=== PATIENT | female | born 1955 | race Caucasian/White ===

== ENCOUNTER 2022-02-10 06:48 | Day surgery (SDC) | payer MEDICARE, SELFPAY ==
[2022-02-10 07:20] VITALS: BP 139/70; PULSE 86; RESP 16; TEMP 37.1; O2SAT 100
[2022-02-10] MEDS: Tropicam./Phenyleph. (1/2.5%) 5 ML BTL OD ×3 (07:34→07:44)
--- NOTE | 2022-02-10 07:37 | ANES.PREOP_ITS ---
General Info Date of Service Date Performed: 02/10/22 Height: 5 ft 2 in Weight: 49.8 kg Body Mass Index (BMI): 20.0 Surgical Procedure: Operation Date: 02/10/22 08:40 Proposed Procedure Side Surgeon p Cataract Extraction with IOL Implant Right Jose Manuel Nguyen MD Meds Allergies and Home Medications Allergies Allergy/AdvReac Type Severity Reaction Status Date / Time No Known Allergies Allergy Verified 02/10/22 07:14 Home Medication Medication Instructions Recorded albuterol sulfate 90 mcg/actuation 2 puff inhalation DIRECTED 02/07/22 aerosol inhaler (Ventolin HFA) amlodipine 10 mg tablet 10 mg PO DAILY 02/07/22 fluticasone propionate 220 220 inh inhalation DAILY 02/07/22 mcg/actuation HFA aerosol inhaler (Flovent HFA) ipratropium 0.5 mg-albuterol 3 mg 3 ml inhalation DIRECTED 02/07/22 (2.5 mg base)/3 mL nebulization soln levocetirizine 5 mg tablet 5 mg PO DAILY 02/07/22 multivitamin 1 tab PO DAILY 02/07/22 tiotropium 2.5 mcg-olodaterol 2.5 2 puff inhalation DAILY 02/07/22 mcg/actuation mist for inhalation Current Visit Medications: Current Medications Generic Name Dose Route Start Last Admin Trade Name Freq PRN Reason Stop Dose Admin Acetaminophen 1,000 mg 02/10/22 06:00 Acetaminophen 500 Mg Tab PO Q4H PRN PRN Miscellaneous Medication 0 ml 02/10/22 06:00 Prednisolone 1%, Moxifloxacin 0.5%, Nepafenac 0.1% 5ml Btl OD DIRECTED [facility] Miscellaneous Medication 0 ml 02/10/22 06:00 02/10/22 07:34 Tropicam./Phenyleph. (1/2.5%) 5 Ml Btl OD 1 drp DIRECTED [facility] Administration Tetracaine HCl 0 ml 02/10/22 06:00 Tetracaine 0.5% 4 Ml Btl OD DIRECTED [facility] Medical History Medical History Bilateral cataracts Centriacinar emphysema Chronic respiratory failure HTN (hypertension) Nicotine dependence in remission Not for resuscitation Pulmonary HTN Requires oxygen therapy 3L O2 24/hr Severe chronic obstructive pulmonary disease Medical History Comments:: 3L chronic O2 Surgical History Surgical History History of left hip replacement Hx of tubal ligation Tobacco Smoking/Tobacco Use Status: Former Tobacco Use Alcohol Alcohol Intake: current Alcohol intake frequency: holidays/special occasions only Alcohol type: wine Substance Use Substance use: Rarely Details: CBD gummy Vital Signs and Lab Results Vital Signs Most Recent Vital Signs in EMR: Most Recent Vital Signs Temp Pulse Resp BP Pulse Ox 37.1 C 86 16 139/70 100 02/10/22 07:20 02/10/22 07:20 02/10/22 07:20 02/10/22 07:20 02/10/22 07:20 Lab Results Blood Type / Crossmatch: No Data to Display Complete Blood Count: No Data to Display Complete Metabolic Panel: No Data to Display Liver Function Panel: No Data to Display Coagulation Panel: No Data to Display Cardiac Panel: No Data to Display Arterial Blood Gas: No Data to Display Venous Blood Gas: No Data to Display Pancreas Panel: No Data to Display Thyroid Panel: No Data to Display Infectious Disease: No Data to Display Blood Cultures: No Data to Display Toxicology Panel: No Data to Display Anesthesia Assessment and Plan Anesthesia History Personal History: No History of Anesthesia Complications Family History: No Family History of Anesthesia Complications Exercise Tolerance Exercise Tolerance: Metabolic Equivalents<4 Pertinent Negatives Pertinent Negatives: No Major Cardiovascular Symptoms or Complaints Cardiac & Pulmonary Exam Cardiac Exam: Normal S1/S2 Heart Sounds Pulmonary Exam: Clear Bilateral Breath Sounds (Diminished) Cardiac and Pulmonary Comment:: O2 dependent Implantable Cardiac Device Does patient have a Pacemaker or an ICD?: No Airway Exam Known Difficult Airway: No Mallampati Class: 2 Mouth Opening: Normal (> 3cm) Thyromental Distance: Greater than 3 cm Neck Range of Motion: Full ROM Neck Circumference: Normal Teeth Condition: Removable Dentures/Plates Upper and Removable Dentures/Plates Lower (Partial) ASA Classification ASA Score: ASA 3 Emergency Case?: No NPO Status NPO Status: NPO Clears >2 hours, Solids >8 hours Anesthesia Plan Resuscitation Status: Full Code Anesthesia Technique: MAC Anesthesia Airway Planned: Natural Airway Monitors Used: Standard Monitors
[2022-02-10] MEDS: Lidocaine 2% Jelly 6 ML SYR (08:18)
[2022-02-10] MEDS: Tetracaine 0.5% 4 ML BTL OD (08:18)
[2022-02-10] MEDS: Povidone-Iodine Ophth 30 ML BTL (08:18)
[2022-02-10] MEDS: Balanced Salt Soln.-PLUS 500 ML BAG (08:25)
[2022-02-10 08:45] VITALS: BP 127/75; PULSE 83; RESP 16; TEMP 36.7; O2SAT 100
--- NOTE | 2022-02-10 08:49 | W.PM.DSUDISC ---
Discharge Plan Disposition Patient Disposition: HOME Condition: Good Discharge Details Attending Provider: Jose Manuel Nguyen Primary Care Provider: Dylon Fuentes Home Meds and New Rx's Prescriptions: No Action multivitamin Tablet 1 tab PO DAILY ipratropium-albuterol 0.5 mg-3 mg(2.5 mg base)/3 mL Solution For Nebulization 3 ml INHALATION DIRECTED albuterol sulfate [Ventolin HFA] 90 mcg/actuation Hfa Aerosol Inhaler 2 puff INHALATION DIRECTED levocetirizine 5 mg Tablet 5 mg PO DAILY tiotropium-olodaterol 2.5-2.5 mcg/actuation Mist 2 puff INHALATION DAILY amlodipine 10 mg Tablet 10 mg PO DAILY fluticasone propionate [Flovent HFA] 220 mcg/actuation Hfa Aerosol Inhaler 220 inh INHALATION DAILY Discharge Instructions Stand Alone Forms: Post-op Topical Cataract, Jessica Ramírez (DSU) Discharge Orders Discharge Orders: Discharge Order (Routine); Ordered 02/10/22 Ordered By: Jose Manuel Nguyen DS: Diagnosis Discharge Diagnosis (1) Nuclear sclerotic cataract of right eye: Status: Resolved (2) Posterior subcapsular age-related cataract, right eye: Status: Resolved
--- NOTE | 2022-02-10 08:50 | ROE_ITS ---
Date of service: 02/10/22 Time of Service: 08:50 Operative Note Operative Note DATE OF PROCEDURE: 02/10/22 PRE-OP DIAGNOSIS: Nuclear/posterior subcapsular cataract, right eye POST-OP DIAGNOSIS: same PROCEDURE: Cataract extraction using phacoemulsification with intraocular lens implant, right eye SURGEON: Jose Manuel Nguyen ANESTHESIA TYPE: Local By Surgeon and MAC Refer to Anesthesia Record ESTIMATED BLOOD LOSS: 0 PATHOLOGY: none sent COMPLICATIONS: None Patient was transported to: same day Patient's condition: stable Implants: Barron & Barron/MORENA Tecnis [id number] Indications: Progressive visual loss due to cataract, right eye Procedure Description: CATARACT SURGERY OPERATIVE REPORT PREOPERATIVE DIAGNOSIS: 1. Nuclear/posterior subcapsular cataract, right eye POSTOPERATIVE DIAGNOSIS: Same OPERATION: 1. Cataract extraction using phacoemulsification with posterior chamber intraocular lens implant, right eye. IOL: IOL [employer] Operator/Model: Barron & Barron / MORENA Tecnis [id number] IOL Power: + 21.5 diopters IOL Serial Number: [id number] Optic Diameter: 6.0mm Haptic/Overall Diameter: 13.0mm PHACO INFO: Rakesh Wriggleurion Vision System with OZil and Active Fluidics Cumulative Dispersed Energy (CDE): 18.43 seconds SURGEON: Jose Manuel Nguyen MD, TERRY ANESTHESIA: Monitored Anesthesia Care (MAC), with local sub-tenon's anesthetic infiltration COMPLICATIONS: None SPECIMENS: None INDICATIONS FOR PROCEDURE: The patient is a 66-year-old lady with history of diminished visual acuity in her right eye secondary to the development of nuclear and posterior subcapsular cataract. She has a mature white cataract in her left eye with light perception vision. We elected to do the lesser cataract first for more rapid visual rehabilitation. The option of cataract surgery was offered to the patient and she wished to proceed. PROCEDURE: The correct surgical eye was identified and marked as the right eye and the pupil was dilated in the preoperative area using mydriatics and cycloplegics. The dilated pupil size was 6.5 mm. The patient elected to proceed without oral sedation. The patient was brought to the operating room where cardiopulmonary monitoring was instituted and surgical time-out was performed, confirming the correct operative eye and IOL power. Topical anesthesia was administered and ophthalmic povidone-iodine 5% was instilled into the conjunctival fornices. Lidocaine gel was applied to the cor kenyon and the jeannine-ocular area was prepped with Betadine 10% solution and draped in the usual sterile fashion for intraocular surgery, including an aperture drape. A Tegaderm transparent film dressing was cut in half and used to cover the lashes and lid margins. Care was taken to sequester the lashes and lid margins under the Tegaderm dressing. A lid speculum was placed between the lids of the operative eye and the Rakesh LuxOR Revalia operating microscope was maneuvered into position. Rajinder scissors were then used to make a conjunctival buttonhole approximately 6mm posterior to the limbus in the inferonasal quadrant. Blunt dissection was carried out to expose bare sclera, and a blunt-tipped sub-tenon?s anesthesia cannula was introduced and passed posteriorly along the globe where non- preserved plain lidocaine was injected into posterior sub-Tenon?s space. A sideport knife was used to make a paracentesis port inferotemporally. Intraocular phenylephrine/lidocaine was injected into the anterior chamber. The anterior chamber was filled with viscoelastic. A keratome knife was used to construct a 2-plane near-clear corneal tunnel extending 2.0mm into clear cornea superiortemporally. A flap was raised on the anterior capsule and capsulorhexis forceps were used to complete a continuous curvilinear capsulorhexis of 5.5 mm. Capsule was noted to be quite rubbery with loose zonules. Balanced salt solution was then used to perform cortical cleaving hydrodissection and nuclear hydrodelineation until the lens could be freely rotated within the capsular bag. The lens nucleus was then disassembled and removed within the capsular bag and iris plane using phacoemulsification. Residual cortical material was removed using the I/A handpiece. The posterior capsule was carefully polished to remove as much residual lens epithelial cells as safely possible. The capsular bag was then inflated and the anterior chamber deepened with viscoelastic. The lens implant described above was inserted into the capsular bag using the MORENA Lummi Injector. A Kuglen hook was used to dial the IOL into position. Residual viscoelastic was then removed first from posterior to the IOL, then from the anterior chamber using the I/A handpiece. The lens implant was noted to center nicely within the capsular bag. The incisions were stromally hydrated, and the anterior chamber was reformed using BSS. Then 0.5cc of moxifloxacin 1.0mg/ml were injected into the capsular bag and anterior chamber. The incisions were checked with a Weck spear and found to be secure. Several drops of ophthalmic povidone-iodine 5% were then applied to the eye followed by two drops of Imprimis combination prednisolone/moxifloxacin/nepafenac solution. The drapes were removed and a clear plastic protective eye shield was placed over the eye. The patient was then returned to Same Day Surgery in stable condition.
--- NOTE | 2022-02-10 09:01 | W.ANESPOSTOP ---
Postoperative Evaluation Date, Time and Location Date Performed: 02/10/22 Time Performed: 08:53 Patient Location: Day Surgery Unit Vital Signs Most Recent Imported Vital Signs: Most Recent Vital Signs Temp Pulse Resp BP Pulse Ox 36.7 C 83 16 127/75 100 02/10/22 08:45 02/10/22 08:45 02/10/22 08:45 02/10/22 08:45 02/10/22 08:45 Pain Score Most Recent Pain Score: Most Recent Pain Score Pain Level 0 02/10/22 08:45 Assessment Mental Status: Awake (Alert & Oriented to Patient Baseline) Airway and Respiratory Function: Patent airway with normal (patient baseline) respiratory exam Cardiovascular Function: Hemodynamically Stable Hydration Status: Adequately Hydrated Nausea & Vomiting: No Nausea or Vomiting Pain: Pt. Denies Any Pain Peripheral Nerve Block: Patient did not receive a nerve block
== END 2022-02-10 09:15 | disposition home or self-care (01) ==
LOC: SUR 06:49
PROVIDERS: PCP Internal Medicine; Visit Provider Ophthalmology
PROC: (CPT 66984; principal; 2022-02-10 08:30)
DX: H25.041 Posterior subcapsular polar age-related cataract, right eye (principal); J44.9 Chronic obstructive pulmonary disease, unspecified; Z99.81 Dependence on supplemental oxygen
CPT/HCPCS: 66984; V2632

== ENCOUNTER 2022-02-24 10:10 | Day surgery (SDC) | payer MEDICARE, SELFPAY ==
[2022-02-24] MEDS: Tropicam./Phenyleph. (1/2.5%) 5 ML BTL OS ×3 (11:07→11:20)
[2022-02-24 11:08] VITALS: BP 122/65; PULSE 71; RESP 18; TEMP 36.7; O2SAT 100
--- NOTE | 2022-02-24 11:30 | W.ANESPRE ---
General Info Date of Service Date Performed: 02/24/22 Height: 5 ft 2 in Weight: 49.6 kg Body Mass Index (BMI): 20.0 Surgical Procedure: Operation Date: 02/24/22 13:40 Proposed Procedure Side Surgeon p Cataract Extraction with IOL Implant Left Jose Manuel Nguyen MD Meds Allergies and Home Medications Allergies Allergy/AdvReac Type Severity Reaction Status Date / Time No Known Allergies Allergy Verified 02/24/22 10:57 Home Medication Medication Instructions Recorded albuterol sulfate 90 mcg/actuation 2 puff inhalation DIRECTED 02/07/22 aerosol inhaler (Ventolin HFA) amlodipine 10 mg tablet 10 mg PO DAILY 02/07/22 fluticasone propionate 220 220 inh inhalation DAILY 02/07/22 mcg/actuation HFA aerosol inhaler (Flovent HFA) ipratropium 0.5 mg-albuterol 3 mg 3 ml inhalation DIRECTED 02/07/22 (2.5 mg base)/3 mL nebulization soln levocetirizine 5 mg tablet 5 mg PO DAILY 02/07/22 multivitamin 1 tab PO DAILY 02/07/22 tiotropium 2.5 mcg-olodaterol 2.5 2 puff inhalation DAILY 02/07/22 mcg/actuation mist for inhalation Current Visit Medications: Current Medications Generic Name Dose Route Start Last Admin Trade Name Freq PRN Reason Stop Dose Admin Acetaminophen 1,000 mg 02/24/22 06:00 Acetaminophen 500 Mg Tab PO Q4H PRN PRN Miscellaneous Medication 0 ml 02/24/22 06:00 Prednisolone 1%, Moxifloxacin 0.5%, Nepafenac 0.1% 5ml Btl OS DIRECTED [facility] Miscellaneous Medication 0 ml 02/24/22 06:00 02/24/22 11:20 Tropicam./Phenyleph. (1/2.5%) 5 Ml Btl OS 1 drp DIRECTED [facility] Administration Tetracaine HCl 0 ml 02/24/22 06:00 Tetracaine 0.5% 4 Ml Btl OS DIRECTED [facility] PFSH Active Problems Active Problems: Problem Status Onset Code Posterior subcapsular age-related cataract of left eye H25.042 Nuclear sclerotic cataract of left eye H25.12 Cortical cataract of left eye H26.9 Mature cataract H26.8 Nuclear sclerotic cataract of right eye H25.11 Posterior subcapsular age-related cataract, right eye H25.041 Medical History Medical History Bilateral cataracts Centriacinar emphysema Chronic respiratory failure HTN (hypertension) Nicotine dependence in remission Not for resuscitation Pulmonary HTN Requires oxygen therapy 3L O2 24/hr Severe chronic obstructive pulmonary disease Medical History Comments:: 3L chronic O2 Surgical History Surgical History History of left hip replacement Hx of cataract surgery Hx of tubal ligation Tobacco Smoking/Tobacco Use Status: Former Tobacco Use Alcohol Alcohol Intake: current Alcohol intake frequency: holidays/special occasions only Alcohol type: wine Substance Use Substance use: Rarely Details: CBD gummy Vital Signs and Lab Results Vital Signs Most Recent Vital Signs in EMR: Most Recent Vital Signs Temp Pulse Resp BP Pulse Ox 36.7 C 71 18 122/65 100 02/24/22 11:08 02/24/22 11:08 02/24/22 11:08 02/24/22 11:08 02/24/22 11:08 Lab Results Blood Type / Crossmatch: No Data to Display Complete Blood Count: No Data to Display Complete Metabolic Panel: No Data to Display Liver Function Panel: No Data to Display Coagulation Panel: No Data to Display Cardiac Panel: No Data to Display Arterial Blood Gas: No Data to Display Venous Blood Gas: No Data to Display Pancreas Panel: No Data to Display Thyroid Panel: No Data to Display Infectious Disease: No Data to Display Blood Cultures: No Data to Display Toxicology Panel: No Data to Display Anesthesia Assessment and Plan Anesthesia History Personal History: No History of Anesthesia Complications Family History: No Family History of Anesthesia Complications Exercise Tolerance Exercise Tolerance: Metabolic Equivalents<4 Cardiac & Pulmonary Exam Cardiac Exam: Normal S1/S2 Heart Sounds Pulmonary Exam: Clear Bilateral Breath Sounds (Diminished) Implantable Cardiac Device Does patient have a Pacemaker or an ICD?: No Airway Exam Known Difficult Airway: No Mallampati Class: 2 Mouth Opening: Normal (> 3cm) Thyromental Distance: Greater than 3 cm Neck Range of Motion: Full ROM Neck Circumference: Normal Teeth Condition: Removable Dentures/Plates Upper and Removable Dentures/Plates Lower (Partial) ASA Classification ASA Score: ASA 3 Emergency Case?: No NPO Status NPO Status: NPO Clears >2 hours, Solids >8 hours Anesthesia Plan Resuscitation Status: Full Code Anesthesia Technique: MAC Anesthesia Airway Planned: Natural Airway Monitors Used: Standard Monitors
[2022-02-24] MEDS: Tetracaine 0.5% 4 ML BTL OS (12:04)
[2022-02-24] MEDS: Lidocaine 2% Jelly 6 ML SYR (12:04)
[2022-02-24] MEDS: Povidone-Iodine Ophth 30 ML BTL (12:04)
[2022-02-24] MEDS: Duovisc Viscoelastic System EACH 1 EACH ×2 (12:12→12:40)
[2022-02-24] MEDS: Balanced Salt Soln.-PLUS 500 ML BAG ×2 (12:12→12:54)
[2022-02-24] MEDS: Lidocaine 1% Pres-Free 5 ML VIAL (12:13)
[2022-02-24] MEDS: Trypan Blue 0.06% 0.5 ML SYR (12:13)
[2022-02-24 13:12] VITALS: BP 122/78; PULSE 74; RESP 16; TEMP 36.2; O2SAT 99
--- NOTE | 2022-02-24 13:12 | W.PM.DSUDISC ---
Discharge Plan Disposition Patient Disposition: HOME Condition: Good Discharge Details Attending Provider: Jose Manuel Nguyen Primary Care Provider: Dylon Fuentes Home Meds and New Rx's Prescriptions: No Action multivitamin Tablet 1 tab PO DAILY ipratropium-albuterol 0.5 mg-3 mg(2.5 mg base)/3 mL Solution For Nebulization 3 ml INHALATION DIRECTED albuterol sulfate [Ventolin HFA] 90 mcg/actuation Hfa Aerosol Inhaler 2 puff INHALATION DIRECTED levocetirizine 5 mg Tablet 5 mg PO DAILY tiotropium-olodaterol 2.5-2.5 mcg/actuation Mist 2 puff INHALATION DAILY amlodipine 10 mg Tablet 10 mg PO DAILY fluticasone propionate [Flovent HFA] 220 mcg/actuation Hfa Aerosol Inhaler 220 inh INHALATION DAILY Discharge Instructions Stand Alone Forms: Post-op Topical Cataract, Jessica Ramírez (DSU) Discharge Orders Discharge Orders: Discharge Order (Routine); Ordered 02/24/22 Ordered By: Jose Manuel Nguyen DS: Diagnosis Discharge Diagnosis (1) Posterior subcapsular age-related cataract of left eye: Status: Resolved (2) Nuclear sclerotic cataract of left eye: Status: Resolved (3) Cortical cataract of left eye: Status: Resolved (4) Mature cataract: Status: Resolved
--- NOTE | 2022-02-24 13:14 | W.PM.OP ---
Date of service: 02/24/22 Time of Service: 13:14 Operative Note Operative Note DATE OF PROCEDURE: 02/24/22 PRE-OP DIAGNOSIS: Dense, mature, nuclear/cortical/posterior subcapsular cataract, left eye Absent red reflex, left eye POST-OP DIAGNOSIS: same Severe generalized zonular laxity, left eye PROCEDURE: Cataract extraction using phacoemulsification with intraocular lens implant, left eye, using capsular staining with Vision Blue Insertion of capsular tension ring, Morcher Type 15, left eye SURGEON: Jose Manuel Nguyen ANESTHESIA TYPE: Local By Surgeon and MAC Refer to Anesthesia Record COMPLICATIONS: None Patient was transported to: same day Patient's condition: stable Implants: Barron and Barron / [employer] Tecnis [id number] Morcher Type 15 capsular tension ring Indications: Progressive decreased vision due to cataract, left eye, with poor red reflex Procedure Description: CATARACT SURGERY OPERATIVE REPORT PREOPERATIVE DIAGNOSIS: 1. Dense, mature, nuclear/cortical/posterior subcapsular cataract, left eye 2. Poor red reflex secondary to #1 POSTOPERATIVE DIAGNOSIS: Same OPERATION: 1. Cataract extraction using phacoemulsification with posterior chamber intraocular lens implant, left eye. 2. Capsular staining with Vision Blue IOL: IOL Brush Filler Hand/Model: Barron & Barron / MORENA Tecnis [id number] IOL Power: + 21.0 diopters IOL Serial Number: [id number] Optic Diameter: 6.0 mm Haptic/Overall Diameter: 13.0 mm PHACO INFO: Rakesh Centurion Vision System with OZil and Active Fluidics Cumulative Dispersed Energy (CDE): 49.43 seconds SURGEON: Jose Manuel Nguyen MD, TERRY ANESTHESIA: Monitored A [facility] (MAC), with local sub-tenon's anesthetic infiltration COMPLICATIONS: None SPECIMENS: None INDICATIONS FOR PROCEDURE: The patient is a 66-year-old lady with history of severely diminished visual acuity in both eyes who was noted to have a total, mature cataract of the left eye with a dense cataract of the right eye. She has already undergone cataract surgery in the right eye and is doing well postoperatively. She now presents for cataract surgery in the left eye. PROCEDURE: The correct surgical eye was identified and marked as the left eye and the pupil was dilated in the preoperative area using mydriatics and cycloplegics. The dilated pupil size was 6.0 mm. The patient elected to proceed without oral sedation. The patient was brought to the operating room where cardiopulmonary monitoring was instituted and surgical time-out was performed, confirming the correct operative eye and IOL power. Topical anesthesia was administered and ophthalmic povidone-iodine 5% was instilled into the conjunctival fornices. Lidocaine gel was applied to the cornea and the jeannine-ocular area was prepped with Betadine 10% solution and draped in the usual sterile fashion for intraocular surgery, including an aperture drape. A Tegaderm transparent film dressing was cut in half and used to cover the lashes and lid margins. Care was taken to sequester the lashes and lid margins under the Tegaderm dressing. A lid speculum was placed between the lids of the operative eye and the Rakesh LuxOR Revalia operating microscope was maneuvered into position. Rajinder scissors were then used to make a conjunctival buttonhole approximately 6mm posterior to the limbus in the inferonasal quadrant. Blunt dissection was carried out to expose bare sclera, and a blunt-tipped sub-tenon?s anesthesia cannula was introduced and passed posteriorly along the globe where non-preserved plain lidocaine was injected into posterior sub-Tenon?s space. A sideport knife was used to make a paracentesis port superiorly/superiortemporally. Intraocular phenylephrine/lidocaine was injected int the anterior chamber.. Air was then injected into the anterior chamber, followed by Vision Blue, which was painted over the anterior capsule and then irrigated out using BSS. The anterior chamber was filled with viscoelastic. Viscoat was used to protect the corneal endothelium. A keratome knife was used to create a 2-plane near clear corneal tunnel extending approximately 2 mm into clear cornea temporally. A flap was raised on the anterior capsule and capsulorhexis forceps were used to complete a continuous curvilinear capsulorhexis of 5.0 mm. Severe generalized zonular laxity was noted with a very thin capsule. Balanced salt solution was then used to perform cortical cleaving hydrodissection and nuclear hydrodelineation until the lens could be freely rotated within the capsular bag. The lens nucleus was then disassembled and removed within the capsular bag and iris plane using phacoemulsification. The deep central trench was sculpted under Viscoat protection. Nuclear splitters were then used to aid in cracking the lens into 2 halves, which was incomplete due to a dense leathery posterior plate. The nucleus was rotated 180 degrees and additional sculpting was performed and a nuclear splitters were again used to correct the nucleus into 2 halves, unsuccessfully due to the fibrotic posterior plate. Under additional Viscoat protection, the lens was slowly debulked and chopped and ultimately removed. Residual cortical material was removed using the 45-degree angled silicone I/A tip with 0.3mm port. The posterior capsule was carefully polished to remove as much residual lens epithelial cells as safely possible. The capsular bag was then inflated and the anterior chamber deepened with viscoelastic. A Morcher Type 15 capsular tension ring was then inserted without difficulty. The lens implant described above was inserted into the capsular bag using the Auto[employer] Reading Injector. A Kuglen hook was used to dial the IOL into position. Residual viscoelastic was then removed first from posterior to the IOL, then from the anterior chamber using the I/A handpiece. The lens implant was noted to center nicely within the capsular bag. The lens was noted to be quite unstable, despite the use of a capsular tension ring. However, it centered well. ` The incisions were stromally hydrated, and the anterior chamber was reformed using BSS. Then 0.5cc of moxifloxacin 1.0mg/ml were injected into the capsular bag and anterior chamber. The incisions were checked with a Weck spear and found to be secure. Several drops of ophthalmic povidone-iodine 5% were then applied to the eye followed by two drops of Imprimis combination prednisolone/moxifloxacin/nepafenac solution. The drapes were removed and a clear plastic protective eye shield was placed over the eye. The patient was then returned to Same Day Surgery in stable condition.
--- NOTE | 2022-02-24 13:31 | W.ANESPOSTOP ---
Postoperative Evaluation Date, Time and Location Date Performed: 02/24/22 Time Performed: 13:31 Patient Location: Day Surgery Unit Vital Signs Most Recent Imported Vital Signs: Most Recent Vital Signs Temp Pulse Resp BP Pulse Ox 36.2 C L 74 16 122/78 99 02/24/22 13:12 02/24/22 13:12 02/24/22 13:12 02/24/22 13:12 02/24/22 13:12 Pain Score Most Recent Pain Score: Most Recent Pain Score Pain Level 0 02/24/22 13:12 Assessment Mental Status: Awake (Alert & Oriented to Patient Baseline) Airway and Respiratory Function: Patent airway with normal (patient baseline) respiratory exam Cardiovascular Function: Hemodynamically Stable Hydration Status: Adequately Hydrated Nausea & Vomiting: No Nausea or Vomiting Pain: Pt. Denies Any Pain Peripheral Nerve Block: Patient did not receive a nerve block
[2022-02-24 13:45] VITALS: BP 117/67; PULSE 70; RESP 18; TEMP 36.4; O2SAT 97
== END 2022-02-24 13:53 | disposition home or self-care (01) ==
PROVIDERS: PCP Internal Medicine; Visit Provider Ophthalmology
PROC: (CPT 66982; principal; 2022-02-24 13:30)
DX: H25.812 Combined forms of age-related cataract, left eye (principal); H26.8 Other specified cataract; J96.10 Chronic respiratory failure, unspecified whether with hypoxia or hypercapnia; Z99.81 Dependence on supplemental oxygen
CPT/HCPCS: 66982; V2632